=== PATIENT | female | born 1985 | race Caucasian/White ===

== ENCOUNTER 2018-04-11 11:07 | Inpatient (IN) | payer OTHER ==
[2018-04-11] MEDS ORDERED: Lidocaine 1%* 5 ML VIAL ONE (12:17)
[2018-04-11] MEDS ORDERED: Penicillin G Potassium IV* 5,000,000 UNITS in NS 0.9% 100 ML* 100 ML IVPB ONE (12:30)
[2018-04-11 12:45] LABS: ABS Basophils 0 10^3/ul (0-0.2); ABS Eosinophils 0.1 10^3/ul (0-0.6); ABS Lymphocytes 1.1 10^3/ul (1.0-4.8); ABS Monocytes 0.8 10^3/ul (0-0.8); ABS Neutrophils 7.4 10^3/ul (1.5-7.7); ABS Nucleated RBC 0 10^3/ul; Eosinophil % 0.8 % (0-6); Hematocrit 38 % (35-47); Hemoglobin 13.4 g/dl (12.0-16.0); Lymphocyte % 12.1 % (25-47); Mean Corpuscular HGB Conc 35 g/dl (31-36); Mean Corpuscular Hemoglobin 32 pg (27-31); Mean Corpuscular Volume 90 fL (80-97); Mean Platelet Volume 8.6 um3 (7.4-10.4); Nucleated Red Blood Cells % 0.2; Platelet Count 182 10^3/ul (150-450); Red Blood Count 4.24 10^6/ul (4.00-5.40); Red Cell Distribution Width 13 % (10.5-15); White Blood Count 9.4 10^3/ul (3.5-10.8)
--- NOTE | 2018-04-11 14:25 | HP ---
General Information - Reason for Visit elective induction for GDM, +GBS at 39 wks - General Information Maternal Age: 32 Grav: 2 Para: 1 SAB: 0 IEA: 0 Estimated Due Date: 04/18/18 Determined By: LMP Gestational Age in Weeks/Days: 39 w 0d Maternal Blood Type and Rh: AB Positive - Results this Serology/RPR Result: Non-Reactive Rubella Result: Immune HBsAg Result: Negative HIV Result: Negative GBS Culture Result: Positive Past Medical History Delivery History: Hx Uncomplicated Vaginal Delivery Past Medical History Comment: Depression/anxiety--on sertraline Pertinent Past Surgical History: None Pertinent Family History: Non-Contributory - Antepartal Records Antepartal Records: Reviewed, Complicated by: - GDM, +GBS Review of Systems Constitutional: Comfortable CV Complaint: No Respiratory: Shortness of Breath: No Gastrointestinal: No Nausea/Vomiting, Soft Stool Genitourinary: No Leaking Fluid Musculoskeletal: No Complaint Neurological: Headache - mild sinus headache Movement: Normal Exam Allergies/Adverse Reactions: Allergies No Known Allergies Allergy (Verified 04/11/18 11:32) Lab Values - Entire Visit: Laboratory Tests 04/11/18 04/11/18 12:25 12:25 WBC 9.4 RBC 4.24 Hgb 13.4 Hct 38 MCV 90 MCH 32 H MCHC 35 RDW 13 Plt Count 182 MPV 8.6 Neut % (Auto) 78.2 Lymph % (Auto) 12.1 L [place] % (Auto) 8.7 H Eos % (Auto) 0.8 Baso % (Auto) 0.2 Absolute Neuts (auto) 7.4 Absolute Lymphs (auto) 1.1 Absolute Monos (auto) 0.8 Absolute Eos (auto) 0.1 Absolute Basos (auto) 0 Absolute Nucleated RBC 0 Nucleated RBC % 0.2 Blood Type AB Positive Antibody Screen Negative - Measurements Height: 5 ft 2 in Weight: 174 lb Weight in lbs: [id number] Body Mass Index (BMI): 31.8 - Exam Breast: - - soft, no masses Extremities: No Edema Heart: Normal Rhythm/Heart Sounds HEENT: No Significant Findings Lungs: Clear Bilaterally Reflexes: DTR 2+ Thyroid: No Thyromegaly - Abdominal Exam Abdomen Exam: Non-Tender - Ultrasound/Biophysical Profile Ultrasound Status: Not Done Targeted Exam Findings Estimated Weight: 6.5 lbs Cervical Exam: 3cm Effacement: 80% Station: -1 Presenting Part: Vertex Membrane Status: AROM - at 1354 Amniotic Fluid Evaluation: Clear EFM Findings - External Monitor Findings Baseline Heart Rate: 120 External Monitor Findings: Accelerations Present, No Pattern of Variable or Late Decelerations, Variability Moderate, Baseline Stable External Monitor Findings Comment: category 1 Contractions: Irregular, Mild Assessment/Plan - Assessment 32 yo at 39 wks with GDM/+GBS for elective induction due to pelvic discomfort. Optons for ripening/induction previously reviewed with pt at office on 04/10/18, opted for initial AROM to start labor. PCN prophylaxis begun - Obstetrical Risk Factors Obstetrical Risk Factors: GBS Positive, Gestational Diabetes - Plan Plan: Admit - Anticipate Vaginal Delivery - Date/Time of Admission Date of Admission: 04/11/18
[2018-04-11] MEDS: Penicillin G Potassium IV* 2,500,000 UNITS in NS 0.9% 100 ML* 100 ML IVPB SCH ×2 (16:52→22:13)
[2018-04-11] MEDS ORDERED: OBEPIDURAL* 250 ML EPIDURAL ONE (17:07)
[2018-04-11] MEDS ORDERED: fentaNYL* 50 MCG/ML 2 ML VIAL (100 MCG VIAL) ONE (17:30)
[2018-04-11] MEDS ORDERED: Phenylephrine IV* 40 MCG/ML 10 ML SYRINGE IV PUSH PRN ×4 (18:20)
[2018-04-11] MEDS ORDERED: Sodium Citrate/Citric Acid* 15 ML UDC PO PRN (18:20)
[2018-04-11] MEDS ORDERED: Famotidine TAB* 20 MG PO PRN (18:20)
[2018-04-11] MEDS ORDERED: OBEPIDURAL* 250 ML EPIDURAL SCH (19:00)
[2018-04-11] MEDS ORDERED: Oxytocin in LR* 20 UNITS/1,000 ML BAG IVPB ONE (19:07)
[2018-04-11] MEDS ORDERED: Acetaminophen TAB* 325 MG PO PRN (19:11)
[2018-04-11] MEDS ORDERED: DiMENhydriNATE IV* 50 MG/ML VIAL IV PUSH PRN (19:11)
[2018-04-11] MEDS ORDERED: diPHENhydraMINE IV* 50 MG/ML 1 ml VIAL (BENADRYL) IV PRN (19:11)
[2018-04-11] MEDS ORDERED: Naloxone* 2 MG in NS 0.9% 250 ML* 250 ML IV PRN (19:11)
[2018-04-11] MEDS ORDERED: Ondansetron INJ* 2 MG/ML VIAL IV PRN (19:11)
[2018-04-11] MEDS ORDERED: Naloxone* 0.4 MG/ML 1 ML VIAL IV PRN (19:11)
[2018-04-11] MEDS ORDERED: Nalbuphine* 10 MG/ML 1 ML VIAL IV PRN (19:11)
[2018-04-11] MEDS ORDERED: Witch Hazel PAD* JAR TOPICAL PRN (19:54)
[2018-04-11] MEDS ORDERED: Glycerin ADULT SUPP PR PRN (19:54)
[2018-04-11] MEDS ORDERED: Oxytocin in LR* 20 UNITS/1,000 ML BAG IVPB SCH (20:00)
--- NOTE | 2018-04-11 20:05 | PROCNOTE ---
[facility] OB: Delivery Note - Delivery A Date of : 04/11/18 Time of : 19:14 [place] Sex: Male Weight at : 6 lb 8 oz Score 1 Minute: 8 Score 5 Minutes: 9 Gestational Age in Weeks and Days at Delivery: 39 Weeks and 0 Days Delivery Method: Spontaneous Vaginal Labor: Induced Amniotic Fluid: Clear Estimated Blood Loss: 300 Anesthesia/Analgesia: Other Anesthesia Comment: epidural placed, not successful, removed, given intrathecal by Dr. Epps Delivered By: Sahra Daniel - Nursery Level of Nursery: Regular/Bedside - Perineum Perineal Injury: None/Intact Perineal Repair: None - Events Delivery Events of Note: Full Course of Antibiotics Delivery Events of Note Comment: straight cathed after delivery for 350 cc - Additional Delivery Notes Additional Delivery Notes: SVB LMC, OA, after 14 min second stage over intact perineum. with good tone, color, heart beat, did not cry. Placenta Raisa. FF with massage, IV with pitocin running, straight cathed. EBL 300cc. Mother/baby in good condition
[2018-04-11] MEDS: Sertraline* 100 MG TAB PO SCH (22:13)
[2018-04-11] MEDS: Docusate CAP* 100 MG PO SCH (22:13)
[2018-04-11] MEDS: Ibuprofen TAB* 600 MG PO PRN (22:22)
[2018-04-12] MEDS: Ibuprofen TAB* 600 MG PO PRN ×3 (04:40→17:10)
[2018-04-12 07:08] LABS: Hematocrit 34 % (35-47); Hemoglobin 11.8 g/dl (12.0-16.0); Mean Corpuscular HGB Conc 35 g/dl (31-36); Mean Corpuscular Hemoglobin 31 pg (27-31); Mean Corpuscular Volume 91 fL (80-97); Mean Platelet Volume 8.7 um3 (7.4-10.4); Platelet Count 163 10^3/ul (150-450); Red Blood Count 3.76 10^6/ul (4.00-5.40); Red Cell Distribution Width 13 % (10.5-15); White Blood Count 12.4 10^3/ul (3.5-10.8)
[2018-04-12] MEDS: Docusate CAP* 100 MG PO SCH ×3 (08:31→20:27)
[2018-04-12] MEDS ORDERED: Ferrous Gluconate TAB* 324 MG TAB PO SCH (09:00)
[2018-04-12] MEDS: Sertraline* 100 MG TAB PO SCH (20:27)
[2018-04-13] MEDS: Ibuprofen TAB* 600 MG PO PRN ×3 (01:29→15:49)
[2018-04-13] MEDS: Docusate CAP* 100 MG PO SCH ×2 (07:57→15:49)
[2018-04-13 08:00] VITALS: BP 105/60
== END 2018-04-13 16:12 | disposition home or self-care (01) | DRG 775 ==
LOC: MCHOBOUT 11:07 → MCHOB 12:06
PROVIDERS: ADMIT Midwife; ATTEND Midwife
PROC: 10E0XZZ Delivery of Products of Conception, External Approach (ICD-10-PCS; principal; 2018-04-11)
PROC: 3E033VJ Introduction of Other Hormone into Peripheral Vein, Percutaneous Approach (ICD-10-PCS; 2018-04-11)
PROC: 10907ZC Drainage of Amniotic Fluid, Therapeutic from Products of Conception, Via Natural or Artificial Opening (ICD-10-PCS; 2018-04-11)
DX: O24.429 Gestational diabetes mellitus in childbirth, unspecified control (principal); O99.824 Streptococcus B carrier state complicating childbirth; O99.344 Other mental disorders complicating childbirth; F41.8 Other specified anxiety disorders; Z3A.39 39 weeks gestation of pregnancy; Z37.0 Single live birth
CPT/HCPCS: 36415; 85025; 85027; 86850; 86900; 86901; 90686; A9270-GY; J2540; J3010